=== PATIENT | male | born 1995 | race Caucasian/White ===

== ENCOUNTER 2022-08-15 07:53 | Emergency (ER) | payer BC, OTHER ==
[2022-08-15] MEDS ORDERED: diphenhydrAMINE INJ 50 MG/ML VIAL IVP STA (08:13)
[2022-08-15] MEDS ORDERED: KETOROLAC 15 MG/ML VIAL IVP STA (08:13)
[2022-08-15] MEDS ORDERED: PROCHLORPERAZINE 10 MG/2 ML VIAL IVP STA (08:13)
[2022-08-15] MEDS ORDERED: SODIUM CHLORIDE 0.9% 1,000 ML IV STA (08:13)
--- NOTE | 2022-08-15 08:16 | ED Physician Documentation ---
History of Present Illness - Stated complaint Stated Complaint: BRIAN/BODY ACHES - Chief complaint Chief Complaint: General - Additonal information Additional information: Patient is 26-year-old male presenting to the emergency department with h eadache, nausea, vomiting. Symptoms ongoing since Monday. Headache was not maximal at time of onset. Reports some migraine headaches in the past but never 1 this severe. Denies any fevers or chills. He does endorse for nausea and vomiting with last episode of vomiting approximately 4 hours ago. Reports decreased p.o. intake. Works in a healthcare setting. Up-to-date on immunizations including COVID immunization. Review of Systems Ten Systems: 10 systems reviewed and negative Constitutional: denies: Fever, Chills Eyes: denies: Loss of vision Ears: denies: Loss of hearing Throat: reports: Sore throat Respiratory: denies: Dyspnea GI: reports: Nausea, Vomiting. denies: Abdominal Pain : denies: Dysuria Skin: denies: Rash Musculoskeletal: denies: Neck pain Neurologic: reports: Headache PD PAST MEDICAL HISTORY - Present Medications Home Medications: Ambulatory Orders Medication Instructions Recorded Confirmed Celecoxib [CeleBREX] 100 mg PO BID #20 cap 08/15/22 ONDANSETRON ODT Prepack 2 [ZOFRAN 4 mg TL Q6H #20 tablet 08/15/22 ODT Prepack 2] - Allergies Allergies/Adverse Reactions: Allergies Allergy/AdvReac Type Severity Reaction Status Date / Time lactose Allergy Unknown Verified 08/15/22 08:04 shellfish derived Allergy Rash Verified 08/15/22 08:04 PD ED PE NORMAL - Vitals Vital signs reviewed: Yes - General General: Alert and oriented X 3 - HEENT HEENT: Atraumatic, PERRL, EOMI, Ears normal - Neck Neck: Supple, no meningeal sign, No bony TTP, No adenopathy - Cardiac Cardiac: RRR, No gallop, Strong equal pulses - Respiratory Respiratory: No respiratory distress, Clear bilaterally - Abdomen Abdomen: Non tender - Male Male : Deferred - Rectal Rectal: Deferred - Derm Derm: Normal color Results - Vitals Vitals: Vital Signs - 24 hr 08/15/22 08/15/22 08:00 09:34 Temperature 37 C Heart Rate 108 H 77 Respiratory 18 14 Rate Blood Pressure 148/78 H O2 Saturation 97 99 Oxygen O2 Source Room air - Labs Labs: Laboratory Tests 08/15/22 08/15/22 08/15/22 08:34 08:34 08:35 WBC 4.7 L RBC 5.09 Hgb 15.4 Hct 44.6 MCV 87.6 MCH 30.3 MCHC 34.5 RDW 12.7 Plt Count 136 MPV 12.1 H Neut # (Auto) 3.0 Lymph # (Auto) 0.4 L Ness # (Auto) 1.3 H Eos # (Auto) 0.0 Baso # (Auto) 0.0 Absolute Nucleated RBC 0.00 Nucleated RBC % 0.0 Sodium 139 Potassium 3.7 Chloride 103 Carbon Dioxide 28 Anion Gap 8.0 BUN 10 Creatinine 1.1 Estimated GFR (MDRD) 82 L Glucose 99 Calcium 9.3 Total Bilirubin 1.1 H AST 26 ALT 32 Alkaline Phosphatase 56 Total Protein 7.8 Albumin 4.9 Globulin 2.9 Albumin/Globulin Ratio 1.7 Lipase 35 Nasal Adenovirus (PCR) NOT DETECTED Nasal B. parapertussis DNA (PCR) NOT DETECTED Nasal Coronavir 229E PCR NOT DETECTED Nasal Coronavir HKU1 PCR NOT DETECTED Nasal Coronavir NL63 PCR NOT DETECTED Nasal Coronavir OC43 PCR NOT DETECTED Nasal Enterovir/Rhinovir PCR NOT DETECTED Nasal Influenza B PCR NOT DETECTED Nasal Influenza A PCR NOT DETECTED Nasal Parainfluen 1 PCR NOT DETECTED Nasal Parainfluen 2 PCR NOT DETECTED Nasal Parainfluen 3 PCR NOT DETECTED Nasal Parainfluen 4 PCR NOT DETECTED Nasal RSV (PCR) NOT DETECTED Nasal B.pertussis DNA PCR NOT DETECTED Nasal C.pneumoniae (PCR) NOT DETECTED Vic Human Metapneumo PCR NOT DETECTED Nasal M.pneumoniae (PCR) NOT DETECTED Nasal SARS-CoV-2 (PCR) DETECTED A PD MEDICAL DECISION MAKING - ED course Complexity details: reviewed results, d/w patient ED course: Patient is 26-year-old male presenting to the emergency department with 2-day history headache, congestion, nausea vomiting, shortness of air. Afebrile, hemodynamically stable on arrival to the emergency department. Clear aeration in all lung pompa. HEENT exam benign. Neurologic exam benign. No nuchal rigidity. Labs obtained demonstrated a leukopenia with lymphopenia. Subsequent PCR demonstrates patient is positive for COVID-19. Discussed use of experimental antiviral medications with the patient which she declines at this time. Monitored in the emergency department for several hours. No respiratory distress or worsening symptoms. No nausea or vomiting appreciated in the emergency department. Will discharge with prescriptions for Celebrex and Zofran for use for any nausea. Encourage careful follow-up with primary care and to return to the emergency department as needed. Departure - Departure Disposition: 01 Home, Self Care Clinical Impression: COVID-19 Prescriptions: Celecoxib [CeleBREX] 100 mg PO BID #20 cap ONDANSETRON ODT Prepack 2 [ZOFRAN ODT Prepack 2] 4 mg TL Q6H #20 tablet Comments: Thank you for allowing us to care for you today at [facility]. Prescription sent electronically to [facility] in [place]. Today in the emergency department you are diagnosed with the SARS COVID-19 virus. It is important that you quarantine at home per current CDC guidelines. If after 5 days of symptoms you have been fever free for greater than 24 hours without requiring any medications such as Tylenol or Motrin to help with fever and all of your symptoms are improving you can leave quarantine however the CDC does recommend a further 10 days of social distancing after this time. Please make a follow-up appoint with your primary care doctor soon as possible. If it anytime you have any new or worsening symptoms please not hesitate to return. Forms: Activity restrictions
[2022-08-15 08:42] LABS: BASOPHILS % (AUTO) 0.2 %; EOSINOPHILS % (AUTO) 0.2 %; HCT - HEMATOCRIT 44.6 % (42.0-52.0); HGB - HEMOGLOBIN 15.4 g/dL (14.0-18.0); LYMPHOCYTES # (AUTO) 0.4 10^3/uL (1.5-3.5); LYMPHOCYTES % (AUTO) 7.8 %; MEAN CORPUSCULAR HEMOGLOBIN 30.3 pg (27.0-31.0); MEAN CORPUSCULAR HGB CONC 34.5 g/dL (32.0-36.0); MEAN CORPUSCULAR VOLUME 87.6 fL (80.0-94.0); MEAN PLATELET VOLUME 12.1 fL (7.4-11.4); MONOCYTES # (AUTO) 1.3 10^3/uL (0.0-1.0); MONOCYTES % (AUTO) 28.3 %; NEUTROPHILS % (AUTO) 63.3 %; PLT - PLATELET COUNT 136 10^3/uL (130-450); RED BLOOD COUNT 5.09 10^6/uL (4.70-6.10); RED CELL DISTRIBUTION WIDTH 12.7 % (12.0-15.0); WHITE BLOOD COUNT 4.7 x10^3/uL (4.8-10.8)
[2022-08-15 08:54] LABS: ALBUMIN 4.9 g/dL (3.2-5.5); ALBUMIN/GLOBULIN RATIO 1.7 (1.0-2.2); BILIRUBIN,TOTAL 1.1 mg/dL (0.2-1.0); CALCIUM 9.3 mg/dL (8.5-10.3); CREATININE 1.1 mg/dL (0.6-1.2); POTASSIUM 3.7 mmol/L (3.5-5.0); TOTAL PROTEIN 7.8 g/dL (6.7-8.2)
[2022-08-15 09:37] LABS: B. PARAPERTUSSIS- RESP PCR PAN NOT DETECTED; B. PERTUSSIS- RESP PCR PANEL NOT DETECTED; C. PNEUMONIAE- RESP PCR PANEL NOT DETECTED; CORONAVIRUS 229E-RESP PCR NOT DETECTED; CORONAVIRUS HKU1-RESP PCR NOT DETECTED; CORONAVIRUS NL63-RESP PCR NOT DETECTED; CORONAVIRUS OC43-RESP PCR NOT DETECTED; HUMAN METAPNEUMOVIRUS NOT DETECTED; INFLUENZA A- RESP PCR PANEL NOT DETECTED; INFLUENZA B - RESP PCR PANEL NOT DETECTED; M. PNEUMONIAE- RESP PCR PANEL NOT DETECTED; PARAINFLUENZA VIRUS 1 NOT DETECTED; PARAINFLUENZA VIRUS 2 NOT DETECTED; PARAINFLUENZA VIRUS 3 NOT DETECTED; PARAINFLUENZA VIRUS 4 NOT DETECTED; RHINOVIRUS/ENTEROVIRUS NOT DETECTED; RSV- RESP PCR PANEL NOT DETECTED
[2022-08-15 09:39] LABS: SARS-CoV-2 -RESP PCR PANEL DETECTED
[2022-08-15 10:09] VITALS: BP 137/85
== END 2022-08-15 10:13 | disposition home or self-care (01) ==
LOC: ED 07:53
DX: U07.1 COVID-19 (principal)
CPT/HCPCS: 36415; 80053; 83690; 85025; 87633; 96374; 99283; 99284; J1200